=== PATIENT | male | born 1985 | race Caucasian/White ===

== ENCOUNTER 2017-01-30 17:10 | Emergency (ER) | payer BC ==
[2017-01-30 20:10] LABS: Hematocrit 47 % (42-52); Hemoglobin 15.6 g/dl (14.0-18.0); Mean Corpuscular HGB Conc 34 g/dl (31-36); Mean Corpuscular Hemoglobin 30 pg (27-31); Mean Corpuscular Volume 90 fL (80-94); Mean Platelet Volume 9 um3 (7.4-10.4); Red Blood Count 5.19 10^6/ul (4.0-5.4); Red Cell Distribution Width 13 % (10.5-15)
[2017-01-30 20:25] LABS: BUN/Creatinine Ratio 12.1 (8-20); Calcium 9.5 mg/dL (8.6-10.3); EGFR African American 181.1 (>60); EGFR Non-African American 140.8 (>60); Potassium 3.8 mmol/L (3.5-5.0)
--- NOTE | 2017-01-30 21:13 | RAD ---
INDICATION: Headache COMPARISON: None. TECHNIQUE: Contiguous axial sections of the brain were obtained from the skull base to the vertex without contrast. FINDINGS: The ventricles, cisterns and sulci are within normal limits. The munoz-white matter differentiation is adequately maintained and there is no sulcal effacement. No significant focal abnormality or mass effect is present. There is no evidence for intracranial hemorrhage. No significant focal osseous abnormality is present. The visualized portion of the paranasal sinuses and mastoid air cells appear clear. IMPRESSION: Normal CT of the brain.
[2017-01-30 21:56] VITALS: BP 148/82
--- NOTE | 2017-01-31 01:36 | ED ---
I, Oh,Ana Luisa, scribed for Galo Lee MD on 01/30/17 at 2157 . Headache - HPI Summary HPI Summary: This 31 y/o male presents to ED for acute, intermittent migraine that occurred 2 days ago. Pt was camping in [facility] at time of onset. He initially dismissed DOMINGUEZ as being dehydrated, and attempted to control symptoms by drinking water and holding back on beers. Pt woke up a day ago with photophobia, loss of vision in left eye, RUE arm pain, and involuntary resting tremor. PMHx is significant for known migraine with previous episodes of similar vision deficiencies. Pt however became concerned with new onset of resting tremor. Symptoms resolved after taking Excedrine and waking up from sleep afterward. Pt was seen by Dr. Hawk today's afternoon and was sent to ED to r/o Lyme disease vs CVA. 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 - History Of Current Complaint Chief Complaint: EDGeneral Stated Complaint: ARM PAIN,VISION LOSS-SENT BY DR HAWK Time Seen by Provider: 01/30/17 21:24 Hx Obtained From: Patient, Medical Records Onset/Duration: Sudden Onset Timing: Intermittent, Lasting: - Allergies/Home Medications Allergies/Adverse Reactions: Allergies Allergy/AdvReac Type Severity Reaction Status Date / Time Cefaclor [From [facility]] Allergy Unknown Verified 01/30/17 20:49 Reaction Details PMH/Surg Hx/FS Hx/Imm Hx Cardiovascular History: Denies: Hx Pacemaker/ICD Sensory History: Denies: Hx Hearing Aid Neurological History: Reports: Hx Migraine Psychiatric History: Denies: Hx Panic Disorder - Surgical History Surgery Procedure, Year, and Place: t+a,appy,hand nerve repair. Infectious Disease History: No Infectious Disease History: Denies: Traveled Outside the [place] in Last 30 Days - Family History Known Family History: Positive: Cardiac Disease Negative: Other - Negative migraine - Social History Alcohol Use: Occasionally Hx Substance Use: No Substance Use Type: Reports: None Hx Tobacco Use: Yes Smoking Status (MU): Former Smoker Review of Systems Negative: Fever Positive: Photophobia Negative: Arthralgia, Myalgia Negative: Rash Neurological: Other - Positive involuntary resting tremor Positive: Headache All Other Systems Reviewed And Are Negative: Yes Physical Exam - Summary Physical Exam Summary: The patient is well-nourished in no acute distress and in no acute pain. The skin is warm and dry and skin color reflects adequate perfusion. No Bull's eye rash noted. HEENT: The head is normocephalic and atraumatic. The pupils are equal and reactive. EOMI. The conjunctivae are clear and without drainage. Nares are patent and without drainage. Mouth reveals moist mucous membranes and the throat is without erythema and exudate. The external ears are intact. The ear canals are patent and without drainage. The tympanic membranes are intact. Neck is supple with full range of motion and non-tender. There are no carotid bruits. There is no neck vein distension. Respiratory: Chest is non-tender. Lungs are clear to auscultation and breath sounds are symmetrical and equal. Cardiovascular: Hear is regular rate and rhythm. There is no murmur or rub auscultated. There is no peripheral edema and pulses are symmetrical and equal. Abdomen: The abdomen is soft and non-tender. There are normal bowel sounds heard in all four quadrants and there is no organomegaly palpated. Musculoskeletal: There is no back pain noted. Extremities are non-tender with full range of motion. There is good capillary refill. There is no peripheral edema or calf tenderness elicited. Neurological: Patient is alert and oriented to person, place and time. The patient has symmetrical motor strength in all four extremities. Cranial nerves are grossly intact. Deep tendon reflexes are symmetrical and equal in all four extremities. Negative visual deficiency. Visual acuity intact. Normal Finger to nose exam. Normal heel to sheen. No facial droops. No pronator drifts at all four extremities. Psychiatric: The patient has an appropriate affect and does not exhibit any anxiety or depression. Triage Information Reviewed: Yes Vital Signs On Initial Exam: Initial Vitals Temp Pulse Resp BP Pulse Ox 98.1 F 75 16 126/85 96 01/30/17 17:13 01/30/17 17:13 01/30/17 17:13 01/30/17 17:13 01/30/17 17:13 Vital Signs Reviewed: Yes Diagnostics - Vital Signs Vital Signs Temp Pulse Resp BP Pulse Ox 01/30/17 21:09 74 96 01/30/17 21:08 118/63 01/30/17 20:48 74 97 01/30/17 20:46 97.5 F 74 16 132/88 97 01/30/17 20:35 97.9 F 80 16 121/75 100 01/30/17 19:11 97.6 F 68 16 117/80 99 01/30/17 17:13 98.1 F 75 16 126/85 96 - Laboratory Lab Results: Lab Results 01/30/17 01/30/17 Range/Units 20:03 20:03 WBC 10.0 (3.5-10.8) 10^3/ul RBC 5.19 (4.0-5.4) 10^6/ul Hgb 15.6 (14.0-18.0) g/dl Hct 47 (42-52) % MCV 90 (80-94) fL MCH 30 (27-31) pg MCHC 34 (31-36) g/dl RDW 13 (10.5-15) % Plt Count 262 (150-450) 10^3/ul MPV 9 (7.4-10.4) um3 Neut % (Auto) 52.3 (38-83) % Lymph % (Auto) 35.5 (25-47) % [place] % (Auto) 8.8 (1-9) % Eos % (Auto) 2.4 (0-6) % Baso % (Auto) 1.0 (0-2) % Absolute Neuts (auto) 5.2 (1.5-7.7) 10^3/ul Absolute Lymphs (auto) 3.6 (1.0-4.8) 10^3/ul Absolute Monos (auto) 0.9 H (0-0.8) 10^3/ul Absolute Eos (auto) 0.2 (0-0.6) 10^3/ul Absolute Basos (auto) 0.1 (0-0.2) 10^3/ul Absolute Nucleated RBC 0.01 10^3/ul Nucleated RBC % 0.1 Sodium 136 (133-145) mmol/L Potassium 3.8 (3.5-5.0) mmol/L Chloride 105 (101-111) mmol/L Carbon Dioxide 23 (22-32) mmol/L Anion Gap 8 (2-11) mmol/L BUN 8 (6-24) mg/dL Creatinine 0.66 L (0.67-1.17) mg/dL Est GFR ( Amer) 181.1 (>60) Est GFR (Non-Af Amer) 140.8 (>60) BUN/Creatinine Ratio 12.1 (8-20) Glucose 91 (70-100) mg/dL Calcium 9.5 (8.6-10.3) mg/dL Result Diagrams: 01/30/17 20:03 01/30/17 20:03 Lab Statement: Any lab studies that have been ordered have been reviewed, and results considered in the medical decision making process. - CT Brain CT Interpretation: No Acute Changes CT Interpretation Completed By: Radiologist Headache Course/Dx - Course Assessment/Plan: THis 31 y/o male presents to ED for intermittent migraine DOMINGUEZ that occurred 2 days ago and resolved a day ago after taking Excedrine. Positive vision deficiency in left eye, photophobia, and involuntary resting tremor. PMHx is signficant for known migraine that is controlled with Excedrine and with similar vision deficiencies. Symptoms spontaneously resolved after taking Excedrine and sleeping. Pt was sent to ED from Dr. Hawk office to r/o CVA vs. Lyme disease. Upon examination pt was noted without any Bull's eye rash , or neuro deficiencies. Pt was sent home with pending Lyme titer. - Diagnoses Differential Diagnosis/HQI/PQRI: Migraine, Other - lyme,s disease Provider Diagnoses: Migraine Discharge - Discharge Plan Condition: Stable Disposition: HOME Patient Education Materials: Migraine Headache (ED) Referrals: Jean Hawk MD [Primary Care Provider] - 2 Days The documentation as recorded by the Khalif wilkerson Soohyun accurately reflects the service I personally performed and the decisions made by , Galo Lee MD.
== END 2017-01-30 21:51 | disposition home or self-care (01) ==
LOC: ED 17:10
DX: G43.909 Migraine, unspecified, not intractable, without status migrainosus (principal); H53.149 Visual discomfort, unspecified; Z87.891 Personal history of nicotine dependence
CPT/HCPCS: 36415; 70450; 80048; 85025; 86618; 99283

== ENCOUNTER 2019-08-09 07:10 | Emergency (ER) | payer OTHER ==
[2019-08-09 07:24] VITALS: BP 140/90
--- NOTE | 2019-08-09 07:24 | UC ---
Laceration HPI - HPI Summary HPI Summary: PT present with 1.5cm laceration to left 5th finger. Pt was using pocket knife to loosed mai cover on truck when slipped. 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 APPENDECTOMY. Lt HAND - NERVE DAMAGE REPAIR - Family History Known Family History: Positive: Cardiac Disease, Non-Contributory Negative: Other - Negative migraine - Social History Occupation: Employed Full-time - [employer] Lives: With Family Alcohol Use: Occasionally Substance Use Type: None Smoking Status (MU): Former Smoker Review of Systems All Other Systems Reviewed And Are Negative: No Skin: Positive: Other - laceration Physical Exam - Summary Physical Exam Summary: Vital Signs Reviewed: Yes A+Ox3, no distress Eyes: Conjunctiva Clear ENT: Hearing grossly normal neck: supple Respiratory: Positive: No respiratory distress, No accessory muscle use Cardiovascular: skin color reflect adequate perfusion 2+ radial, 2+ ulna, CBT < 2 sec Musculoskeletal Exam: + flex/ext mcp, DIP, PIP against resistance Neurological: Positive: Alert, ambulatory without difficulty + gross sensation throughout Psychological: Positive: Normal Response To proivder Skin: Positive: no rash, no ecchymosis, pt with 1.5 cm laceration medial aspect distal finger left hand 5th digit -no active bleeding, no nail involvement Laceration Repair - Laceration Repair 1 Procedure Summary: verbal permission to treat time out completed with RN at bedside pt prepped in usual, sterile fashion copious irrigation with 250ml sterile saline under pressure pt tolerated well reviewed with pt wound care s/s infection return precautions Description: Linear Modified For Repair: No Type Injection: Local Anesthesia Used: 1.0% Lido Cleansing Completed Via Routine Prep: Yes Irrigation With Pressure Irrigation Device: No Closure Material: Sutures - 3 simple interrupted Closure Method: Single Layer Suture Of: Skin Suture Type: Nylon - 5-0 Laceration Course/Dx - Course/Dx Course Of Treatment: Pt presents with laceration medial aspect non dominant 5th finger - no nail involvement CSM intact 3 simple interrupted sutrues placed - pt tolerated well reviewed wound care , s/s infection motrin/apap tdap utd return precautions - Diagnosis Provider Diagnosis: Finger laceration Discharge ED - Sign-Out/Discharge Documenting (check all that apply): Patient Departure All imaging exams completed and their final reports reviewed: No Studies - Discharge Plan Condition: Stable Disposition: HOME Patient Education Materials: Care For Your Stitches (ED), Laceration (ED) Forms: *Work Release Referrals: Jean Hawk MD [Primary Care Provider] - Additional Instructions: - your stitches should come out in 8-10 days - you can return here, go to your Doctor or any urgent care center - okay to alternate ibuprofin (advil, motrin) and tylenol every 3hours as needed for pain -Anticipate increased discomfort over the next several hours as the numbing medication wears off -Keep your wound clean and dry - no soaking for 24 hours. Then, okay for wound to get wet - pat dry, don't rub -apply a thin layer of antibiotic ointment (neosporin, polysporin) 2-3 times a day - Contact your doctor or return here with questions or concerns - Billing Disposition and Condition Condition: STABLE Disposition: Home
[2019-08-09] MEDS ORDERED: Lidocaine 1% MPF ** 5 ML VIAL INJ ONE (07:53)
[2019-08-09] MEDS ORDERED: Ibuprofen TAB* 600 MG PO ONE (07:54)
== END 2019-08-09 08:25 | disposition home or self-care (01) ==
LOC: UCEAST 07:10
DX: S61.217A Laceration without foreign body of left little finger without damage to nail, initial encounter (principal); W26.0XXA Contact with knife, initial encounter; Z88.1 Allergy status to other antibiotic agents; Y92.812 Truck as the place of occurrence of the external cause; Z87.891 Personal history of nicotine dependence
CPT/HCPCS: 12001; 99212; A9270-GY; G0463

== ENCOUNTER 2024-04-20 14:51 | Inpatient (IN) ==
[2024-04-20 15:42] LABS: ABS Basophils 0.1 10^3/uL (0.0-0.1); ABS Eosinophils 0.1 10^3/uL (0.0-0.5); ABS Lymphocytes 2.4 10^3/uL (1.0-4.8); Eosinophil % 1.2 %; Hematocrit 48.4 % (38-53); Hemoglobin 16.8 g/dL (13.2-16.3); Mean Corpuscular Hemoglobin 31.1 pg (27-33); Mean Corpuscular Hgb Conc 34.7 g/dL (31-36); Mean Corpuscular Volume 89.7 fL (80-97); Mean Platelet Volume 8.8 fL (7.5-11.2); Platelet Count 272 10^3/uL (150-450); Red Blood Count 5.39 10^6/uL (4.06-5.63); Red Cell Distribution Width 13.7 % (12-17); White Blood Count 9.6 10^3/uL (3.6-10.2)
[2024-04-20 15:43] LABS: Urine Appearance Clear; Urine Bilirubin Negative (Negative); Urine Blood Negative (Negative); Urine Color Colorless; Urine Glucose Negative (Negative); Urine Ketones Negative (Negative); Urine Nitrite Negative (Negative); Urine Protein Negative (Negative); Urine Specific Gravity 1.003 (1.002-1.030); Urine Urobilinogen Negative (Negative); Urine pH 6.5 (5.0-8.0)
[2024-04-20 16:04] LABS: ALT 45 U/L (7-52); AST 26 U/L (13-39); Acetaminophen < 15 mcg/mL; Albumin 4.8 g/dL (3.2-5.2); Albumin/Globulin Ratio 1.5 (1-3); Alcohol, S < 13 mg/dL (<13); Alkaline Phosphatase 84 U/L (35-149); Anion Gap 7 mmol/L (2-16); Blood Urea Nitrogen 11 mg/dL (6-24); CO2 Carbon Dioxide 25 mmol/L (22-32); Calcium 9.9 mg/dL (8.6-10.3); Chloride 106 mmol/L (101-111); Creatinine, Serum 0.73 mg/dL (0.67-1.17); Globulin 3.1 g/dL (2-4); Glucose 105 mg/dL (70-100); Potassium 4.3 mmol/L (3.5-5.0); Salicylate < 2.50 mg/dL (<30); Sodium 138 mmol/L (135-145); Total Bilirubin 0.6 mg/dL (0.2-1.0); Total Protein 7.9 g/dL (6.4-8.9); eGFR CKD-EPI 119.4 (>60)
[2024-04-20 16:05] LABS: Urine Benzodiazepine Screen None Detected (None Detect); Urine Cannabinoids Screen Presumptive Positive (None Detect); Urine Opiates Screen None Detected (None Detect)
[2024-04-20 16:18] LABS: TSH Ultra Thyroid Stim Horm 1.57 mcIU/mL (0.34-5.60)
[2024-04-20] MEDS ORDERED: Al Hydrox/Mg Hydrox/Simet LIQ 30 ML UDC PO PRN (20:53)
[2024-04-20] MEDS: Nicotine GUM 2MG FRUIT FLAVOR PO PRN (21:34)
[2024-04-21 07:55] LABS: HDL Cholesterol 36.4 mg/dL
[2024-04-21] MEDS: Vitamin THERAPEUTIC TAB PO SCH (08:52)
[2024-04-21] MEDS: CMCS: Vortioxetine 10 mg TAB (NF) PO SCH (08:52)
[2024-04-21] MEDS: Nicotine PATCH 21 MG/24 HR PATCH TRANSDERM SCH (11:47)
[2024-04-21] MEDS ORDERED: Ondansetron ODT 4 mg TAB 4 MG TAB PO PRN (15:00)
[2024-04-22 10:06] VITALS: BP 125/90
[2024-04-22] MEDS: CMC:Vortioxetine 10 mg TAB (NF) PO ONE (11:08)
== END 2024-04-22 11:30 | disposition home or self-care (01) | DRG 882 ==
LOC: ED 14:51 → EDHOLD 18:03 → BSU 18:09
PROVIDERS: ADMIT Psychiatry & Neurology Psychiatry; ATTEND Student in an Organized Health Care Education/Training Program